=== PATIENT | female | born 1995 | race African-American/Black ===

== ENCOUNTER 2020-06-29 10:58 | Emergency (ER) | payer BC ==
[~2020-06-29] VITALS: Ht 157.5 cm; Wt 81.7 kg
[2020-06-29] MEDS ORDERED: VENTOLIN HFA 1818 GM INH (12:14)
[2020-06-29 12:40] VITALS: BP 136/86
== END 2020-06-29 12:40 | disposition home or self-care (01) ==
LOC: ER 10:58 → EDBD 10:58 → ER 12:40
DX: J45.901 Unspecified asthma with (acute) exacerbation (principal); Z20.822 Contact with and (suspected) exposure to COVID-19